=== PATIENT | female | born 1945 | race Caucasian/White ===

== ENCOUNTER 2020-10-07 23:15 | Inpatient (IN) | payer MEDICARE, BC ==
[~2020-10-07] VITALS: Ht 177.8 cm; Wt 51.3 kg
[~2020-10-07 23:15] MED LIST: ASPIRIN 32325 MG/TAB PO; EFFEXOR-XR150 MG PO; FERROUS SU325 MG/TAB PO; LASIX 20MG TABL20 MG PO; LEVOXYL0.1 MG PO; LIPITOR 40MG TA40 MG PO; NATURAL IRON65 MG PO; NORCO 325 MG-51 TAB PO; ONE DAILY MULTI1 TA1 PO; PROTONIX 40MG T40 MG PO; SENOKOT S 50 MG1 TAB PO; TYLENOL 500MG500 MG PO
[2020-10-08 00:50] LABS: BASO % 0.2 % (0.0-2.0); EOS # 0.2 (0.0-0.7); EOS % 2.8 % (0-4.0); GRAN # 6.5 (1.4-6.5); GRAN % 74.4 % (42.2-75.2); HEMATOCRIT 29.7 % (37.0-47.0); HEMOGLOBIN 9.1 g/dl (12.5-16.0); LYMPH # 1.5 (1.2-3.4); LYMPH % 16.8 % (20.0-51.0); MEAN CELL VOLUME 94 fl (80.0-100.0); MEAN CORPUSCULAR HEMOGLOBIN 29 pg (27.0-31.0); MEAN CORPUSCULAR HGB CONC 31 g/dl (33.0-37.0); MEAN PLATELET VOLUME 9.7 fl (7.4-10.4); MONO # 0.5 (0.1-0.6); MONO % 5.3 % (1.7-9.3); PLATELET COUNT 238 K/mm3 (130-400); RED BLOOD COUNT 3.16 M/mm3 (4.10-5.30); REDCELL DISTRIBUTION WIDTH-CV 14.9 % (11.5-14.5)
[2020-10-08 00:57] LABS: PROTHROMBIN TIME 10.9 SECONDS (9.7-12.8)
[2020-10-08 01:00] LABS: ALBUMIN 3.1 gm/dL (3.5-5.0); BILIRUBIN,TOTAL 0.2 mg/dL (0.0-1.0); CALCIUM 8.7 mg/dL (8.4-10.2); POTASSIUM 4.3 mmol/L (3.4-5.0)
[2020-10-08 02:30] VITALS: BP 146/66; PULSE 66; TEMP 97.8
--- NOTE | 2020-10-08 03:47 | NUR ---
Pt came around 2AM for for fall which she fractured her left hip. She is AOx3 and on IV fluid. She rated her pain 7/10. morphine 2 mg was given.Will continue to monitor.
[2020-10-08 08:01] VITALS: BP 127/61; PULSE 70; TEMP 97.8
--- NOTE | 2020-10-08 11:00 | NUR ---
Patient was not able to void. Placed forte catheter. She only had about 30ml of juan clear urine returned. Sent urine for UA. Patient stated she does not make much urine at home but she does not drink much. No issues with placing catheter. 16fr forte catheter placed. Secured forte to right thigh. Her son is going to bring the correct medlist because her medication list was correct on admission and she couldn't remember the doses. No other changes at this time. Patient had a hip ct as ordred by ortho. Call light within reach.
[2020-10-08 11:09] VITALS: BP 127/63; PULSE 67; TEMP 97.6
[2020-10-08 11:20] LABS: MUCOUS Present /lpf; PH 5 (5-8); SQUAMOUS EPITHELIAL 0-2 /hpf; URINE APPEARANCE Hazy; URINE BACTERIA None Seen /hpf; URINE BILIRUBIN Negative (NEGATIVE); URINE BLOOD Negative (NEGATIVE); URINE COLOR Yellow; URINE GLUCOSE Negative (NEGATIVE); URINE KETONE Negative (NEGATIVE); URINE LEUKOCYTE ESTERASE Negative (NEGATIVE); URINE NITRATE Negative (NEGATIVE); URINE PROTEIN(semi-quant) Negative (NEGATIVE); URINE UROBILINOGEN >=4.0 mg/dL (NEGATIVE)
[2020-10-08 11:41] LABS: COLLECTION METHOD CLEAN CATCH
--- NOTE | 2020-10-08 12:54 | NUR ---
Liability Claims Manager offered prayer and support with patient.
[2020-10-08 15:50] VITALS: BP 133/53; PULSE 75; TEMP 97.5
[2020-10-08] MEDS ORDERED: ASPIRIN 81M81 MG/TA2 PO (17:09)
[2020-10-08] MEDS ORDERED: BACTRIM DS 8001 TAB PO (17:10)
[2020-10-08] MEDS ORDERED: MOTRIN PO (17:19)
[2020-10-08 19:36] VITALS: BP 133/52; PULSE 77; TEMP 97.6
--- NOTE | 2020-10-08 19:47 | NUR ---
Patient did well today. Pain has been controlled with tylenol and morphine. Her urine output for the shift is low. Dr Pineda was aware of this when the catheter was placed. He just said to encourage fluids and keep IVF's going. Passed on to Poncho Melvin RN and she is going to notify hospitalist. No other changes at this time. Call light within reach.
--- NOTE | 2020-10-08 21:00 | NUR ---
Pt. laying in bed at this time. Pt. is A&OX3, assessment complete IV to lt. hand patent, IV fluids infusing per orders. Pt. refuses scd or ice to LLE. Pt. denies pain or other needs, at this time. Call light within reach.
[2020-10-08 23:52] VITALS: BP 140/62; PULSE 78; TEMP 97.4
[2020-10-09] VITALS (10 sets, daily range): BP systolic 129–150; BP diastolic 49–68; PULSE 70–107; TEMP 97–98.6
[2020-10-09 07:51] LABS: BASO % 0.1 % (0.0-2.0); EOS # 0.1 (0.0-0.7); EOS % 1.2 % (0-4.0); GRAN # 7.7 (1.4-6.5); GRAN % 85.8 % (42.2-75.2); LYMPH # 0.7 (1.2-3.4); LYMPH % 7.8 % (20.0-51.0); MEAN CELL VOLUME 95 fl (80.0-100.0); MEAN CORPUSCULAR HGB CONC 31 g/dl (33.0-37.0); MEAN PLATELET VOLUME 10.5 fl (7.4-10.4); MONO # 0.4 (0.1-0.6); MONO % 4.5 % (1.7-9.3); PLATELET COUNT 213 K/mm3 (130-400); RED BLOOD COUNT 2.34 M/mm3 (4.10-5.30); REDCELL DISTRIBUTION WIDTH-CV 15.2 % (11.5-14.5)
[2020-10-09 08:03] LABS: CALCIUM 8.2 mg/dL (8.4-10.2); CREATININE, serum 0.8 (0.52-1.25); POTASSIUM 4.3 mmol/L (3.4-5.0)
[2020-10-09 08:09] LABS: HEMATOCRIT 22.3 % (37.0-47.0); HEMOGLOBIN 6.9 g/dl (12.5-16.0); MEAN CORPUSCULAR HEMOGLOBIN 29 pg (27.0-31.0)
--- NOTE | 2020-10-09 12:28 | NUR ---
Starting blood transfusion. Protocol followed. Checked blood with Jannie Atkinson RN. Started the transfusion at 60ml/hr. Explained the protocol to the patient and the family. No questions verbalized. Explained possible reactions and what to notify me of. This nurse will stay in the room for the 1st 15mins. No other changes at this time.
--- NOTE | 2020-10-09 12:50 | NUR ---
Patient tolerating transfuion without issues. Pushpa OLMOS in to speak with patient. Increased transfuion to 125ml/hr. Reminded patient to notify this nurse of any reactions. Vital signs stable. Miky stated no changes at this time. Her daughter in law is at bedside. No other changes at this time.
--- NOTE | 2020-10-09 14:32 | NUR ---
Sw met with the patient who stated her preference to return home once medically stable. The pt lives at home alone, in [place]. The pt uses a walker, wheelchair, cane and 3L oxygen at home at night. The pt is independent on all ADLs. The pt next of kin is her , Chaitanya (ph# [phone]) and the person to notify is Walter or Binu (ph#[phone]). . The pt pcp is Dr. Aguirre in [place] and uses [place] [facility] for medication. The pt has used HH services many years ago. No other needs stated at this. Sw to await further recommendations and follow up as needed. D/c: Home
--- NOTE | 2020-10-09 15:10 | NUR ---
Blood transfusion is complete. Patient tolerated well. Her family is at bedside. Explained will monitor her HGB and decide if she needs more before surgery. No other changes at this time. Call light within reach.
[2020-10-09 16:10] LABS: HEMOGLOBIN 8.7 g/dl (12.5-16.0)
--- NOTE | 2020-10-09 18:30 | NUR ---
Patient has been doing well since her blood transfusion. Her family was here throughout the day. They attempted to bring her foot to get her to eat but she refused. Denies pain and nausea. Offered a few times to get her cleaned up and change her gown today but she refused. She stated that it was just changed the previous night. Attempted to reposition her a few times but she does not tolerate it very well. Her bruising to her face looks better today. No other changes at this time. Call light within reach.
--- NOTE | 2020-10-09 19:15 | NUR ---
Pt. laying in bed at this time. Pt. is A&OX3, assessment complete. IV to lt. hand patent, IV fluids infusing per orders. Pt. reports pain to lt. leg at a 3 on pain scale, giving Tylenol per orders. Pt. denies further needs, call light within reach.
[2020-10-10] VITALS (13 sets, daily range): BP systolic 129–158; BP diastolic 42–73; PULSE 55–96; TEMP 97.7–98.7
[2020-10-10 06:13] LABS: MEAN CELL VOLUME 93 fl (80.0-100.0); MEAN CORPUSCULAR HGB CONC 33 g/dl (33.0-37.0); MEAN PLATELET VOLUME 10.4 fl (7.4-10.4); PLATELET COUNT 198 K/mm3 (130-400); RED BLOOD COUNT 2.81 M/mm3 (4.10-5.30); REDCELL DISTRIBUTION WIDTH-CV 15.1 % (11.5-14.5)
[2020-10-10 06:17] LABS: HEMATOCRIT 26.1 % (37.0-47.0); HEMOGLOBIN 8.5 g/dl (12.5-16.0); MEAN CORPUSCULAR HEMOGLOBIN 30 pg (27.0-31.0)
[2020-10-10 06:30] LABS: CREATININE, serum 0.67 (0.52-1.25); POTASSIUM 3.8 mmol/L (3.4-5.0)
[2020-10-10 07:08] LABS: BAND 9 % (0-10); EOSINOPHIL 1 % (0-4); LYMPHOCYTE 13 % (20.0-51.0); NEUTROPHILS 75 % (42.0-75.2); PLATELET ESTIMATE NORMAL (NORMAL); SCHISTOCYTES 1+
--- NOTE | 2020-10-10 08:12 | NUR ---
Patient in bed resting. Alert and oriented x 3. Son at bedside. Patient denies pain at this time. Radames cierra and SCD to RLE. LLE is shortened and externally rotated, pedal pulses intact. IVF infusing per orders to left hand IV. Mcghee to dd. Denies further needs at this time. US in for ECHO early this AM.
--- NOTE | 2020-10-10 08:43 | NUR ---
Hospitalist in to see patient.
--- NOTE | 2020-10-10 10:02 | NUR ---
Patient to OR by bed.
--- NOTE | 2020-10-10 10:08 | NUR ---
THe patient has a left hip fracture and is having surgery today. DARIO met with the patient and her son, Regulo (ph#[phone]), to introduce oneself and discuss post-acute rehab. The patient and Regulo are agreeable to rehab. They prefer [facility] or [facility]. SW inquired about a DPOA-HC. The patient reports that she does have one done and that it designates Regulo. She believes that a copy of it is at home. SW requested that Regulo bring a copy in. The patient states that her is . She has three children: Regulo, Walter (ph#[phone]), and Chip. DARIO contacted and gave the referral to Mary at [facility]. DARIO contacted and faxed and emailed a referral to Kaylee at [facility]. Awaiting screens. *Discharge plan: SB or SNF*
--- NOTE | 2020-10-10 12:36 | NUR ---
Patient up from OR. Drowsy but will arouse to voice. Radames hose and SCDs to BLE. Postop VSS and post op fluids infusing per orders. Sons at bedside. Dressing x 3 to left hip are CDI. Denies further needs at this time.
--- NOTE | 2020-10-10 15:09 | NUR ---
Mary, at [facility], reports that they are full today, but will look at Saturday to see what will be available.
--- NOTE | 2020-10-10 18:59 | NUR ---
Patient doing well post op. VSS. Patient denies pain at this time. Fluids infusing per orders, patient refuses supper this evening. Sons at bedside throughout the day. Denies further needs at this time. Will report off to night shift manager.
--- NOTE | 2020-10-10 23:12 | NUR ---
ALERT AND OX3. ASSESSMENT COMPLETE. IV FLUIDS RUNNING IN LEFT HAND. DUARTE CATH TO DD YELLOW URINE.3L O2 N/C. 3 SMALL INCISION TO LEFT HIP. TYL GIVEN FOR PAIN ALONG W PM MEDS. POC DISCUSSED. NEEDS MET.
[2020-10-11 03:46] VITALS: BP 142/62; PULSE 82; TEMP 98.6
--- NOTE | 2020-10-11 04:58 | NUR ---
RESTED THROUGH THE NIGHT WITHOUT INCIDENT. NEEDS MET.
[2020-10-11 07:07] LABS: BASO % 0.1 % (0.0-2.0); EOS # 0.2 (0.0-0.7); EOS % 1.2 % (0-4.0); GRAN # 11.9 (1.4-6.5); GRAN % 78.5 % (42.2-75.2); LYMPH # 1.6 (1.2-3.4); LYMPH % 10.6 % (20.0-51.0); MEAN CELL VOLUME 93 fl (80.0-100.0); MEAN CORPUSCULAR HGB CONC 32 g/dl (33.0-37.0); MEAN PLATELET VOLUME 10.3 fl (7.4-10.4); MONO # 1.2 (0.1-0.6); MONO % 8.2 % (1.7-9.3); PLATELET COUNT 224 K/mm3 (130-400); RED BLOOD COUNT 2.59 M/mm3 (4.10-5.30); REDCELL DISTRIBUTION WIDTH-CV 15.3 % (11.5-14.5)
[2020-10-11 07:12] LABS: HEMATOCRIT 24.2 % (37.0-47.0); HEMOGLOBIN 7.7 g/dl (12.5-16.0); MEAN CORPUSCULAR HEMOGLOBIN 30 pg (27.0-31.0)
[2020-10-11 07:23] LABS: CALCIUM 8.3 mg/dL (8.4-10.2); CREATININE, serum 0.72 (0.52-1.25)
[2020-10-11 08:00] VITALS: BP 1149/59; PULSE 77; TEMP 97.9
[2020-10-11 11:11] VITALS: BP 139/57; PULSE 74; TEMP 97.6
--- NOTE | 2020-10-11 12:42 | NUR ---
Initial visit; Patient remembers [employer] from a prior hospitalization. Patient thanked [employer] for looking in on her and offering empathy and God's blessings.
--- NOTE | 2020-10-11 14:24 | NUR ---
Mary, at [facility], reports that they should have a bed tomorrow and be able to accept the patient. DARIO met with the patient to update. The patient is agreeable to [facility]. She reports that she does have home oxygen and a portable tank that her family can bring up here to use for transport. DARIO contacted and updated the patient's son, Walter, on the above. Walter is also in agreement to the plan. DARIO contacted and faxed updates to Kaylee at [facility]. Kaylee reports that they would also be able to accept the patient. DARIO updated the patient. The patient states she would prefer [facility]. *Discharge plan: [facility] or [facility]*
[2020-10-11 14:25] LABS: HEMATOCRIT 26.3 % (37.0-47.0); HEMOGLOBIN 8.3 g/dl (12.5-16.0)
[2020-10-11 16:00] VITALS: BP 160/69; PULSE 75; TEMP 98.1
--- NOTE | 2020-10-11 18:58 | NUR ---
Patient doing well throughout the day. Has been up to recliner today. Pain medication given x 2 before therapy for pain. Patient Repositioned while in bed. Gauze dressings to left hip are CDI. Ice to left hip. Granddaughter brought in supper for patient; patient refused lunch and breakfast because she says she does not like hospital food. Mcghee maintined to DD with clear yellow urine present. Denies further needs at this time. Will report off to monitor technician.
[2020-10-11 19:45] VITALS: BP 134/60; PULSE 71; TEMP 97.9
--- NOTE | 2020-10-11 22:53 | NUR ---
ALERT AND OX3 AFTER WAKING UP. PT IS DROWSY. DUARTE CATH TO DD, YELLOW URINE. SCD AND TEDS ON. FAMILY INFORMS NURSING BEFORE LEAVING TONIGHT THAT PT IS WANTING TO GET REHAB HERE VS [facility]. WILL PASS ON FOR PLACEMENT.
[2020-10-11 23:19] VITALS: BP 130/65; PULSE 74; TEMP 98.1
[2020-10-12 03:31] VITALS: BP 138/63; PULSE 75; TEMP 97.7
--- NOTE | 2020-10-12 05:38 | NUR ---
RESTED THROUGH THE NIGHT WITHOUT INCIDENT. NEEDS MET.
[2020-10-12 06:46] LABS: CALCIUM 8.5 mg/dL (8.4-10.2); CREATININE, serum 0.82 (0.52-1.25); POTASSIUM 3.9 mmol/L (3.4-5.0)
[2020-10-12 06:47] LABS: BASO % 0.2 % (0.0-2.0); EOS # 0.3 (0.0-0.7); GRAN # 10.2 (1.4-6.5); GRAN % 77.2 % (42.2-75.2); LYMPH # 1.6 (1.2-3.4); LYMPH % 11.8 % (20.0-51.0); MEAN CELL VOLUME 93 fl (80.0-100.0); MEAN CORPUSCULAR HGB CONC 32 g/dl (33.0-37.0); MEAN PLATELET VOLUME 10.2 fl (7.4-10.4); MONO % 7.7 % (1.7-9.3); PLATELET COUNT 248 K/mm3 (130-400); RED BLOOD COUNT 2.43 M/mm3 (4.10-5.30); REDCELL DISTRIBUTION WIDTH-CV 15.2 % (11.5-14.5)
[2020-10-12 06:51] LABS: HEMATOCRIT 22.6 % (37.0-47.0); HEMOGLOBIN 7.3 g/dl (12.5-16.0); MEAN CORPUSCULAR HEMOGLOBIN 30 pg (27.0-31.0)
--- NOTE | 2020-10-12 08:00 | NUR ---
Patient in bed resting. Alert and oriented x 3. Assessment complete. Denies pain at this time. Mcghee to DD with clear yellow urine present. Radames hose and SCDs to BLE. Denies further needs at this time.
[2020-10-12 08:10] VITALS: BP 131/58; PULSE 89; TEMP 98.2
[2020-10-12 11:53] VITALS: BP 127/56; PULSE 64; TEMP 97.8
--- NOTE | 2020-10-12 12:27 | NUR ---
Patient incontinent of urine.
[2020-10-12] MEDS ORDERED: ASPI325T6 PO (13:19)
[2020-10-12] MEDS ORDERED: AMOXICILLIN 8751 TAB PO (13:19)
[2020-10-12] MEDS ORDERED: OSCAL 500 TAB500 MG PO (13:20)
[2020-10-12] MEDS ORDERED: NORCO 325 MG-51 TAB PO (13:20)
[2020-10-12] MEDS ORDERED: VITAMIN C500 MG PO (13:21)
--- NOTE | 2020-10-12 13:52 | NUR ---
Mary, at [facility], reports that they filled up last night and are no longer able to take the patient. DARIO met with the patient to update. The patient would prefer [facility] over [facility]. DARIO notified [facility] Director, Yessica. Yessica reports that they are able to accept the patient. DARIO updated the patient and her son, Regulo. Regulo was in agreement to the plan. The patient is to discharge today, 10/12, to [facility]. No additional needs at this time.
--- NOTE | 2020-10-12 16:20 | NUR ---
Patient transfered out to [facility]. No needs at this time.
== END 2020-10-12 16:25 | DRG 480 ==
LOC: COL.ER 23:15 → SURG 10-08 00:52
PROVIDERS: Orthopaedic Surgery; Physician Assistant; Student in an Organized Health Care Education/Training Program; ADMIT Student in an Organized Health Care Education/Training Program
PROC: 0HQ1XZZ Repair Face Skin, External Approach (ICD-10-PCS; 2020-10-10)
PROC: 0QS706Z Reposition Left Upper Femur with Intramedullary Internal Fixation Device, Open Approach (ICD-10-PCS; principal; 2020-10-10 10:15)
DX: S72.142A Displaced intertrochanteric fracture of left femur, initial encounter for closed fracture (principal); E43 Unspecified severe protein-calorie malnutrition; I50.32 Chronic diastolic (congestive) heart failure; Z68.1 Body mass index [BMI] 19.9 or less, adult; E03.9 Hypothyroidism, unspecified; E78.5 Hyperlipidemia, unspecified; S02.2XXA Fracture of nasal bones, initial encounter for closed fracture; Z66 Do not resuscitate; K21.00 Gastro-esophageal reflux disease with esophagitis, without bleeding; D53.9 Nutritional anemia, unspecified; F32.9 Major depressive disorder, single episode, unspecified; I25.2 Old myocardial infarction; F17.210 Nicotine dependence, cigarettes, uncomplicated; J44.9 Chronic obstructive pulmonary disease, unspecified; D72.829 Elevated white blood cell count, unspecified; Z99.81 Dependence on supplemental oxygen; Z95.5 Presence of coronary angioplasty implant and graft; Z79.890 Hormone replacement therapy; Z88.8 Allergy status to other drugs, medicaments and biological substances; W19.XXXA Unspecified fall, initial encounter
CPT/HCPCS: 99223-AI; 99232-AI; 99233-AI; 99239; A4314; A9284; C1713; C1769; J0690; J2250; J2270; J2405; J2704; J3010; J7030; J7050; P9016

== ENCOUNTER 2020-10-12 11:38 | Inpatient (IN) | payer MEDICARE, BC ==
[~2020-10-12] VITALS: Ht 177.8 cm; Wt 51.0 kg
[~2020-10-12 11:38] MED LIST changes: +ASPIRIN 81M81 MG/TA2 PO; +BACTRIM DS 8001 TAB PO; +MOTRIN PO
[2020-10-12] MEDS ORDERED: AMOXICILLIN 8751 TAB PO (13:19)
[2020-10-12] MEDS ORDERED: ASPI325T6 PO (13:19)
[2020-10-12] MEDS ORDERED: NORCO 325 MG-51 TAB PO (13:20)
[2020-10-12] MEDS ORDERED: OSCAL 500 TAB500 MG PO (13:20)
[2020-10-12] MEDS ORDERED: VITAMIN C500 MG PO (13:21)
[2020-10-12 17:37] VITALS: BP 120/57; PULSE 72; TEMP 97.4
--- NOTE | 2020-10-12 18:30 | NUR ---
Patient moved over from surgical. Oriented to room. Explained the plan for care tomorrow. Explained she needs to order her meals the night before because they get delivered automatically at the same time everyday. Her family is at bedside, explained the visitor policy is the same. No questions verbalized. NO other changes at this time. Call light within reach.
--- NOTE | 2020-10-12 21:00 | NUR ---
PT RESTING IN BED. O2 3LNC. PT EASILY DYSPNEIC WITH EXERTION. FACIAL BRUISING. LT EYEBROW AND NOSE HAS SUTURES CDI. DENIES PAIN. NO NEED AT THIS TIME. INCONTINENT OF BOWEL AND BLADDER. CALL LIGHT IN REACH. BED ALARM SET.
[2020-10-13 05:18] VITALS: BP 134/55; PULSE 76; TEMP 98.3
[2020-10-13 07:16] LABS: MEAN CELL VOLUME 95 fl (80.0-100.0); MEAN CORPUSCULAR HGB CONC 32 g/dl (33.0-37.0); MEAN PLATELET VOLUME 10.2 fl (7.4-10.4); PLATELET COUNT 287 K/mm3 (130-400); RED BLOOD COUNT 2.51 M/mm3 (4.10-5.30); REDCELL DISTRIBUTION WIDTH-CV 15.4 % (11.5-14.5)
[2020-10-13 07:18] LABS: HEMATOCRIT 23.8 % (37.0-47.0); HEMOGLOBIN 7.5 g/dl (12.5-16.0); MEAN CORPUSCULAR HEMOGLOBIN 30 pg (27.0-31.0)
[2020-10-13 07:20] LABS: CALCIUM 8.6 mg/dL (8.4-10.2); CREATININE, serum 0.68 (0.52-1.25); MAGNESIUM 1.7 mg/dL (1.6-2.3)
[2020-10-13 07:56] LABS: BAND 6 % (0-10); LYMPHOCYTE 14 % (20.0-51.0); METAMYELOCYTE 2 % (0-0); NEUTROPHILS 76 % (42.0-75.2); NUCLEATED RED BLOOD CELL 2 (0-6); SCHISTOCYTES 1+
[2020-10-13 07:57] LABS: OVALOCYTES 1+
--- NOTE | 2020-10-13 10:00 | NUR ---
OT was working with patient to get back into bed and the patient started to feel lightheaded and thought she was passing out. Patient stated she felt like she couldn't talk. OT said her heart rate when taking her BP was in the 30's. Checked a radial pulse, it was 72. Patient is alert and oriented. Stated she continues to feel dizzy and can't sit up in bed at this time. Denies pain and nausea. No other changesa at this time. Call light within reach.
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
--- NOTE | 2020-10-13 15:54 | NUR ---
DARIO met with the patient, her son (Regulo, ph#[phone]), and another family member to complete intake, as the patient is new to [facility]. The patient lives alone in [place]. Regulo and more of her family also live in [place]. She reports independence with ADLs before hospitalization and has a cane, rollator, and walker. The patient's PCP is Dr. Bhargav Aguirre and she receives her medications from [email or web address]. The patient does not have a DPOA-HC in EMR, but she reports that she does have one completed and at home. She states that Regulo is her DPOA-HC. Regulo reports that he needs to go over to the patient's house and grab the copy. The patient and her family had no other questions or concerns for DARIO at this time.
[2020-10-13 17:32] VITALS: BP 134/55; PULSE 74; TEMP 97.5
--- NOTE | 2020-10-13 18:30 | NUR ---
Patient did a little better this afternoon. No more episodes of getting lightheaded. Still feels dizzy. She did not want to take her evening pills, she stated she just couldn't try to swallow them. She was very slow taking her pills this morning and barely got them down. Denies pain. She has been incontinent with every transfer, she missed the BSC when getting from the wheel chair to the commode and voided on the floor. She is not making much urine but has not been drinking much. No other changes at this time. Call light within reach. Bed alarm on.
--- NOTE | 2020-10-13 21:42 | NUR ---
PT RESTING IN BED. VERY FATIGUED. NO RESP DISTRESS AT THIS TIME. O2 3LNC. CALL LIGTH IN REACH. BED ALARM SET.
[2020-10-14 06:17] VITALS: BP 189/85; PULSE 93; TEMP 97.9
--- NOTE | 2020-10-14 06:30 | NUR ---
Report received from MARISELA Khan> Patient is sleeping. Call light and bedside table are within reach.
--- NOTE | 2020-10-14 14:20 | NUR ---
Received call from PT asking SW to come to pt's room. Upon entry, pt was sitting on edge of bed in tripod position. When asked what was going on, pt stated she dosen't know & just wants to go home. Explained to the pt that going home would require her to have 24/7 care since she currently is needing assistance from the hospital staff. Inquired what is going on & she told me she is depressed & just wants to go home. We discused what might be making her feel more depressed & she really couldn't saying anything exactly. PT eventually helped her into supine position. After therapists left talked to pt some more. She did state that she has had 5 good friends pass in the last year & doesn't know why God hasn't taken her. We talked about this for a while. Asked pt if she would be interested in an antidepressant & stated she is on Effexor already but would be interested in something else or increasing it. We also talked about taking her pain medications prior to her therapy to see if that would help her also. Told her that SW had spoken to the nurses about Melatonin to help her sleep since she didn't sleep well last night. Pt was doing better upon leaving & willing to try the above.
[2020-10-14 18:18] VITALS: BP 156/62; PULSE 73; TEMP 98
--- NOTE | 2020-10-14 18:30 | NUR ---
Patient attended all therapies this shift. Did not drink or eat much during the day, only after family came this afternoon. Patient has food in the refrigerator that family brought in to eat. Patient has a oxy mask to use when not eating, since she is a mouth breather. Patient received a fan at bedside to help with anxiety. See also new orders for increase in anxiety med. Patient currently resting in bed, call light in reach and bed alarm set. Will continue to monitor.
--- NOTE | 2020-10-14 23:41 | NUR ---
Pt has been ok. Breathing is improved base on what i have got from report. Vss stable. Will continue to monitor.
[2020-10-15 05:38] VITALS: BP 159/68; PULSE 68; TEMP 98.2
--- NOTE | 2020-10-15 09:21 | NUR ---
Pt awake upon entry to room, OT in room with Pt. Medications given with applesauce. Shift assessments complete, left Pt call light in reach, sitting in the WC.
[2020-10-15 17:22] VITALS: BP 174/81; PULSE 75; TEMP 98
--- NOTE | 2020-10-15 21:20 | NUR ---
Pt has been more awake. Son was at the bedside.Pain rated 7/10. Narco was given. Will continue to monitor.
[2020-10-16 05:40] VITALS: BP 145/63; PULSE 69; TEMP 97.4
[2020-10-16 15:07] VITALS: BP 126/63; PULSE 70; TEMP 98.3
--- NOTE | 2020-10-16 19:37 | NUR ---
RECEIVED CHANGE OF SHIFT REPORT FROM DAY SHIFT NURSE. BED ALARM ON.
--- NOTE | 2020-10-16 20:30 | NUR ---
PATIENT VERY SHORT OF BREATHING WHEN LAYING FLAT IN BED FOR REPOSITIONING UP IN BED BY STAFF ASST X2. OXYGEN CONTINUES PER NC AT 3LPM, RECOVERY FROM SOA SLOW WITH NO C/O CHEST PAIN OR NAUSEA. DENIES ANY DISCOMFORT TO L HIP AT THIS TIME. AGREED TO TAKE TYLENOL EXTRA STRENGTH WITH HS MEDS AND WILL CONSIDER TAKING ROXICODONE IN AM PRIOR TO P.T. IF NEEDED.
--- NOTE | 2020-10-16 23:50 | NUR ---
PATIENT SLEEPING, DOES NOT WAKE WHEN STAFF ENTER ROOM, BREATHING OBSERVED NONLABORED AND EVEN. BED ALARM ON, CALL LIGHT WITHIN REACH.
--- NOTE | 2020-10-17 03:56 | NUR ---
PATIENT SLEEPING, DOES NOT WAKE WHEN STAFF ENTER ROOM, BREATHING NONLABORED AND EVEN. BED ALARM ON, CALL LIGHT WITHIN REACH.
[2020-10-17 05:24] VITALS: BP 134/58; PULSE 72; TEMP 98.2
--- NOTE | 2020-10-17 07:04 | NUR ---
Patient sitting up in bed, eyes closed, but easily awakened with verbal command. VSS 3L NC O2. Denies pain and discomfort. RT at the bedside for breathing treatment. Heel protectors and DIANA hose bilateral legs. Call light within reach.
[2020-10-17 07:05] LABS: MEAN CELL VOLUME 99 fl (80.0-100.0); MEAN CORPUSCULAR HGB CONC 31 g/dl (33.0-37.0); MEAN PLATELET VOLUME 10.1 fl (7.4-10.4); PLATELET COUNT 371 K/mm3 (130-400); RED BLOOD COUNT 2.43 M/mm3 (4.10-5.30); REDCELL DISTRIBUTION WIDTH-CV 17.4 % (11.5-14.5)
[2020-10-17 07:07] LABS: CALCIUM 8.7 mg/dL (8.4-10.2); CREATININE, serum 0.7 (0.52-1.25); MAGNESIUM 1.8 mg/dL (1.6-2.3); POTASSIUM 4.4 mmol/L (3.4-5.0)
[2020-10-17 07:16] LABS: HEMOGLOBIN 7.5 g/dl (12.5-16.0); MEAN CORPUSCULAR HEMOGLOBIN 31 pg (27.0-31.0)
--- NOTE | 2020-10-17 07:16 | NUR ---
CHANGE OF SHIFT REPORT GIVEN TO DAY SHIFT NURSERAMSEY RN.
[2020-10-17 10:14] LABS: BAND 1 % (0-10); LYMPHOCYTE 16 % (20.0-51.0); METAMYELOCYTE 4 % (0-0); NEUTROPHILS 77 % (42.0-75.2)
[2020-10-17 10:15] LABS: PLATELET ESTIMATE NORMAL (NORMAL); SCHISTOCYTES 1+
[2020-10-17 17:31] VITALS: BP 122/44; PULSE 72; TEMP 97.4
--- NOTE | 2020-10-17 17:44 | NUR ---
Patient spent the day resting in bed. Therapy sat the patient on the edge of bed and the patients oxygen needs increased. Patient did therapy in bed. Sons at the bedside most of the day. VSS. Denies pain and discomfort. Nursing staff and family encouraging PO intake. Patient does not have an appetite. Call light within reach. Bed alarm on
--- NOTE | 2020-10-17 18:35 | NUR ---
RECEIVED CHANGE OF SHIFT REPORT FROM DAY SHIFT NURSE. RESTING IN BED, BED ALARM ON WITH CALL LIGHT WITHIN REACH.
--- NOTE | 2020-10-17 20:00 | NUR ---
BED ALARM FUNCTION NOT WORKING, BED IN LOW POSITION WITH CALL LIGHT WITHIN REACH.
--- NOTE | 2020-10-17 22:00 | NUR ---
BED ALARM NOT WORKING, BED IN LOW POSITION AND CALL LIGHT WITHIN REACH. PATIENT UNABLE TO GET OUT OF BED DUE TO EXTREME DYSPNEIA WITH EXERTION AND ACTIVITY INTOLERANCE.
--- NOTE | 2020-10-18 00:09 | NUR ---
PATIENT SLEEPING, DOES NOT WAKE WHEN STAFF ENTER ROOM. BED ALARM NOT WORKING, BED IN LOW POSITION, CALL LIGHT WITHIN REACH.
[2020-10-18 05:09] VITALS: BP 115/53; PULSE 69; TEMP 96.7
--- NOTE | 2020-10-18 07:20 | NUR ---
CHANGE OF SHIFT REPORT GIVEN TO DAY SHIFT NURSES, MARLON RN AND CARLOS EDUARDO ANTONIO.
[2020-10-18 07:53] VITALS: BP 141/69; PULSE 83; TEMP 97.4
--- NOTE | 2020-10-18 11:20 | NUR ---
This nurse was informed by REY Bañuelos, that patient's grandson's fiance called the patient and told her it was okay if she wanted to let go and go home. The patient misinterpeted home and said, "Yes, I want to come home." The granddaughter clarified what she meant by saying, "No. home in [facility]."
[2020-10-18 11:41] VITALS: BP 151/74; PULSE 66; TEMP 97.3
--- NOTE | 2020-10-18 13:35 | NUR ---
Admission QIM scores were reviewed by the team. Code of 5 chosen for eating was determined by team discussion to be the most usual performance for this patient during the assessment period. Code of 2 chosen for toilet hygiene was determined by team discussion to be the most usual performance for this patient during the assessment period. Code of 3 chosen for toileting transfers was determined by team discussion to be the most usual performance for this patient during the assessment period. Code of 2 chosen for lower body dressing was determined by team discussion to be the most usual performance for this patient during the assessment period. Code of 2 chosen for putting on/taking off footwear was determined by team discussion to be the most usual performance for this patient during the assessment period. Code of 88 for sit to stand was determined by team discussion to be the most usual performance for this patient during the assessment period. Code of 2 for chair/bed to chair transfers was determined by team discussion to be the most usual performance for this patient during the assessment period.--Yessica Raymond,
--- NOTE | 2020-10-18 14:34 | NUR ---
I met with Aysha and her son Walter at bedside today to discuss goals of care and what direction of care Aysha wished to pursue. Aysha's response was that "I want to go home". "I will do better at home exercising and eating". Son Walter disagreed and reminded her that she was not eating when she was home before she fell and broke her hip. She reports that it is her breathing that is keeping her from exercising. "Even standing up makes me loose my breath". When I talked with Aysha about the fact that she is not safe to go home alone, she replied that she had family close. Later she stated that she wouldn't want her family to have to stay with her like that. We talked about pursuing therapy here and eating more, we talked about home health services or entering into a facility--which she quickly reminded me that "this was not like home". She told me that she would eat more and better at home but her son, Walter, reminded her that her eating was a problem before she broke her hip. We talked about hospice services in a facility or in her home with 24 hour care, we talked about staying with family--which she shook her head no at, continuing aggressive therapy at [facility], or going to a fdc for therapy or LTC. None of these choices were to her liking. Her son Regulo is coming to see her later today. Walter is feeling like she needs to make a decision. There is a care planning meeting tomorrow at 0930 and then Donna reports that they will set up a family meeting which her family would like to attend. When directly asked what she wanted to do, Aysha could not give me an answer. At one point she stated "I wish I would have when I broke my hip". I also discussed this meeting with [facility] staff and with Donna ELLIS.
--- NOTE | 2020-10-18 16:23 | NUR ---
A Palliative Care consult ordered for the patient. Vanessa Donaldson, Palliative Care Nurse staffed with this Heavy Rail Train Operator regarding the consult. Vanessa states she met with the patient and she would like to go home. The patient's son disagrees. The patient did not give an answer to Vanessa when asked about hospice or half-way. Vanessa reports that the patient's son, Walter would like to be contacted regarding a family meeting. The team conference in on 10/19. DARIO to discuss family meeting with the team at that time then contact Walter. SW will continue to follow for the safest discharge possible.
--- NOTE | 2020-10-18 16:54 | NUR ---
Vanessa discussed Palitive Care with patient and son this afternoon. Anitha approved for all three sons to be allowed to attend the upcoming family meeting. This meeting day and time will be determined following the Saturday Care Plan meeting. Patient currently has two sons by her side while she is sleeping in bed. Sons were updated on the meeting and that their other brother (Chip Acevedo - [phone]) was approved to attend the upcoming meeting. They voiced understanding. Patient call light is within reach and bed alarm is set. Will continue to monitor.
[2020-10-18 17:31] VITALS: BP 91/62; PULSE 74; TEMP 97.8
--- NOTE | 2020-10-18 19:15 | NUR ---
RECEIVED CHANGE OF SHIFT REPORT FROM DAY SHIFT NURSE. BED ALARM STILL NOT WORKING, CALL LIGHT WITHIN REACH, BED IN LOW POSITION, PATIENT NOT ABLE TO GET OUT OF BED PER SELF DUE TO SEVERE DYSPNEA WITH ANY ACTIVITY/EXERTION.
--- NOTE | 2020-10-18 20:00 | NUR ---
DENIES CHEST PAIN/INCREASED SOA AT THIS TIME WHILE RESTING IN BED. DENIES PAIN OR ANY NEEDS AT THIS TIME. OXYGEN CONTINUES PER NC. BED ALARM STILL NONFUNCTIONING, BED IN LOW POSITION WITH CALL LIGHT WITHIN REACH.
--- NOTE | 2020-10-18 23:50 | NUR ---
PATIENT CALLED FOR STAFF ASSISTANCE, UPON ENTERING ROOM, OBSERVED OXYMASK OFF PATIENT'S FACE WITH PATIENT STATING SHE NEEDED HELP WITH THE OXYGEN, THAT SHE COULD NOT FIND THE MASK. OBSERVED MASK EAR LOOP STILL ON L EAR, REPOSITIONED OXY MASK IN CORRECT POSITION (OVER MOUTH&NOSE), REPOSITION HOB LOWER PER PATIENT REQUEST. PATIENT DENIED ANY OTHER NEEDS AT THIS TIME, DID NOT WANT TO BE REPOSITIONED DUE TO SOA, AGREED TO BE REPOSITIONED FOR INCONTINENCE CHECK WHEN SOA HAS SUBSIDED "LATER". BED ALARM CONTINUES TO NOT WORK, BED IN LOW POSITION WITH CALL LIGHT WITHIN REACH.
--- NOTE | 2020-10-19 00:24 | NUR ---
PATIENT PUT ON BED LOBATO AFTER PERICARE DONE.
--- NOTE | 2020-10-19 00:29 | NUR ---
PATIENT OFF BEDPAN, DID NOT VOID WITH PATIENT UNABLE TO FEEL IF SHE HAD VOIDED OR NOT VOIDED. REPOSITIONED ONTO RIGHT SIDE.
[2020-10-19 05:14] VITALS: BP 124/55; PULSE 79; TEMP 97.5
--- NOTE | 2020-10-19 06:30 | NUR ---
Received report from MARISELA Longoria. Patient is sleeping in bed. Call light and bedside table are within reach. Will continue to monitor patient throughout shift.
[2020-10-19 06:53] LABS: MEAN CELL VOLUME 98 fl (80.0-100.0); MEAN CORPUSCULAR HGB CONC 31 g/dl (33.0-37.0); MEAN PLATELET VOLUME 10.1 fl (7.4-10.4); PLATELET COUNT 361 K/mm3 (130-400); REDCELL DISTRIBUTION WIDTH-CV 18.7 % (11.5-14.5)
[2020-10-19 06:58] LABS: HEMATOCRIT 23.6 % (37.0-47.0); HEMOGLOBIN 7.4 g/dl (12.5-16.0); MEAN CORPUSCULAR HEMOGLOBIN 31 pg (27.0-31.0)
--- NOTE | 2020-10-19 07:07 | NUR ---
CHANGE OF SHIFT REPORT GIVEN TO DAY SHIFT NURSES, ALEX ANTONIO AND CARLOS EDUARDO ANTONIO.
[2020-10-19 07:17] LABS: CALCIUM 8.3 mg/dL (8.4-10.2); CREATININE, serum 0.66 (0.52-1.25); MAGNESIUM 1.7 mg/dL (1.6-2.3); POTASSIUM 4.2 mmol/L (3.4-5.0)
[2020-10-19 08:16] LABS: ANISOCYTOSIS 2+; BAND 5 % (0-10); HYPOCHROMIA 2+; LYMPHOCYTE 14 % (20.0-51.0); METAMYELOCYTE 2 % (0-0); NEUTROPHILS 77 % (42.0-75.2); PLATELET ESTIMATE NORMAL (NORMAL); SCHISTOCYTES 1+
--- NOTE | 2020-10-19 11:09 | NUR ---
Patient passed out when she was about to sit down from a standing position when staff moved her from toilet to bed. When she passed out she fell back in bed and was unresponsive for 10 to 15 seconds. Patient's VSS at this time. Oxygen Nasal Cannula was adjusted from 2 L to 4 L and patient's O2 is at 94% at this time. Will continue to monitor.
[2020-10-19 11:14] VITALS: BP 145/48; PULSE 71
--- NOTE | 2020-10-19 15:21 | NUR ---
Family meeting held with three sons, Walter and Regulo in person and other son on phone.Addressed the determination of care planning meeting this morning and recommendation for pt to go on hospice care at discharge. Discussed with pt and her family the locations that hospice services can be provided-- home, nursing facilitiy,hospice house. Family is aware that pt will need someone with her 05/11 if she should go home. Hospice will come and talk with pt tomorrow morning and the two sons here are going to tour [facility] this afternoon. Aysha states that it is just hard for her to think about this now and is defering most of the decisions to her sons. She is agreeable to hospice services but the location has yet to be determined. Donna [facility] provided resources for in home care if the family wishes to explore further.
--- NOTE | 2020-10-19 15:26 | NUR ---
The patient's sons Walter and Kiran agreed to be present for a meeting at 1430 with Vanessa Donaldson, Palliative Care Nurse and this Supplemental Nurse regarding discharge disposition. The patient's son Chip on speaker phone. Vanessa began the meeting by discussing the teams recommendation of discharging with hospice. The tentative discharge date will be Saturday 10/21. Vanessa and this SW discussed options of home with hospice, the [facility], and SNF on hospice. The patient declined SNF on hospice. The patient, Walter Beck and Chip would like to discuss home with hospice and the [facility]. DARIO provided contact information for home hospice agencies and on private duty home services. DARIO also set up a meeting with a DARIO Crespo from the [facility] to visit the patient on 10/20 at 1000. The patient's son and patient were agreeable to the meeting Zak. DARIO collaborated the above information with Yessica, IPR Director and [facility]
[2020-10-19 17:13] VITALS: BP 120/51; PULSE 71; TEMP 98.9
--- NOTE | 2020-10-19 18:13 | NUR ---
Patient refused 1700 medications. Patient is going to Hospice on Saturday.
[2020-10-20 05:04] VITALS: BP 154/84; PULSE 86; TEMP 97.3
--- NOTE | 2020-10-20 08:38 | NUR ---
Pt assessment complete. Pt is laying in bed upon entry, arouses to voice. She denies any pain. No N/V, but reports little appetite. Reports SOB on exertion none at baseline, currently on 3L O2 via NC. Repositioning offered. No needs at this time. Call light within reach.
[2020-10-20] MEDS ORDERED: FERROUS SU325 MG/TAB PO (11:12)
[2020-10-20] MEDS ORDERED: IPRATROPIUM BROM3 M1 IH (11:12)
[2020-10-20] MEDS ORDERED: PROTONIX 40MG T40 MG PO (11:13)
[2020-10-20] MEDS ORDERED: VENLAFAXINE225 MG PO (11:14)
[2020-10-20] MEDS ORDERED: SYSTANE 0.3-0.1 EACH OP (11:16)
[2020-10-20] MEDS ORDERED: DULCOLAX S10 MG/SUPP RC (11:16)
[2020-10-20] MEDS ORDERED: ATIVAN 1MG T1 MG/TAB PO (11:20)
[2020-10-20] MEDS ORDERED: ROXANOL 20MG20 MG/ML SL (11:20)
--- NOTE | 2020-10-20 11:36 | NUR ---
Pt and family decided on comfort care, patient will transition to [facility] tomorrow at 10am. Family aware. 4 Sutures to nose and eyebrow removed. No needs at this time.
--- NOTE | 2020-10-20 11:37 | NUR ---
Zak with the [facility] met with the patient and her sons this day. The patient is agreeable to discharging to the [facility]. DARIO contacted Mirtha with the [facility]. She reports they can accept the patient on Saturday, 10/21 to be transported at 10:00 AM. [facility] is the pharmacy that scripts need to be faxed to. DARIO met with the patient and her son, they were in agreeance. DARIO collaborated the above information with the patient's nurse and the PA. A Covid-19 test was ordered. *Discharge disposition: [facility]
--- NOTE | 2020-10-20 18:07 | NUR ---
Pt rested well today. No pain reported. Did get dyspneic with any movement. On 6L O2 per patient request and for comfort. Plan to go to [facility] tomorrow.
--- NOTE | 2020-10-20 21:00 | NUR ---
PT RESTING IN BED. O2 AT 6L NC. NO DISTRESS AT THIS TIME. REFUSED HS MEDS EXCEPT MELATONIN. TOOK WITH [facility]. PALLIATIVE CARES RESPECTED. ENC TO CALL STAFF IF NEEDING TURNS. PT AGREED. NO OTHER NEEDS AT THIS TIME. PT DID NOT EAT ANY OF HER DINNER TRAY FROM 1900.
--- NOTE | 2020-10-21 06:30 | NUR ---
Report received from MARISELA Guzmán. Patient is sleeping in bed. Call light and bedside table are within reach. Will continue to monitor patient throughout shift.
--- NOTE | 2020-10-21 07:55 | NUR ---
Patient declined to take medications but stated she wanted to take Roxonol about an hour prior to discharge.
--- NOTE | 2020-10-21 09:55 | NUR ---
Met with patient and her sons this am before her discharge to hospice house. She is feeling uneasy but feels this is a good choice for now. She was given a comfort quilt and seemed pleased. Support provided to her.
[2020-10-21 10:00] VITALS: BP 128/48; PULSE 70; TEMP 98.3
--- NOTE | 2020-10-21 10:25 | NUR ---
Patient was transfered via EMS on stretcher to [facility]. Patient's family packed all of her belongings for transport. Discharge papers were sent with EMS. Two Rx was sent with EMS as well, Roxonol and Ativan.
--- NOTE | 2020-10-21 13:22 | NUR ---
Discharge QIM scores were reviewed by the team. Code of 6 chosen for eating was determined by team discussion to be the most usual performance for this patient during the assessment period. Code of 3 chosen for toileting transfers was determined by team discussion to be the most usual performance for this patient during the assessment period. Code of 3 chosen for rolling left to right was determined by team discussion to be the most usual performance before interventions for this patient during the assessment period. Code of 3 chosen for sit to lying was determined by team discussion to be the most usual performance for this patient during the assessment period. Code of 3 for sit to stand was determined by team discussion to be the most usual performance for this patient during the assessment period.--Yessica Raymond, PD
== END 2020-10-21 10:25 | disposition hospice, inpatient (51) | DRG 559 ==
PROVIDERS: Physician Assistant; ADMIT Internal Medicine
DX: S72.142D Displaced intertrochanteric fracture of left femur, subsequent encounter for closed fracture with routine healing (principal); E43 Unspecified severe protein-calorie malnutrition; I50.32 Chronic diastolic (congestive) heart failure; Z68.1 Body mass index [BMI] 19.9 or less, adult; E03.9 Hypothyroidism, unspecified; I25.2 Old myocardial infarction; S02.2XXD Fracture of nasal bones, subsequent encounter for fracture with routine healing; S01.412D Laceration without foreign body of left cheek and temporomandibular area, subsequent encounter; S01.21XD Laceration without foreign body of nose, subsequent encounter; J44.9 Chronic obstructive pulmonary disease, unspecified; Z20.822 Contact with and (suspected) exposure to COVID-19; Z51.5 Encounter for palliative care; D72.829 Elevated white blood cell count, unspecified; D64.9 Anemia, unspecified; G47.00 Insomnia, unspecified; K21.00 Gastro-esophageal reflux disease with esophagitis, without bleeding; F32.9 Major depressive disorder, single episode, unspecified; E78.5 Hyperlipidemia, unspecified; W18.11XD Fall from or off toilet without subsequent striking against object, subsequent encounter; Z79.82 Long term (current) use of aspirin; Z79.891 Long term (current) use of opiate analgesic; Z95.5 Presence of coronary angioplasty implant and graft; Z88.8 Allergy status to other drugs, medicaments and biological substances
CPT/HCPCS: 99222-AI; 99232-AI; 99239